=== PATIENT | female | born 1980 | race Caucasian/White ===

== ENCOUNTER 2020-10-25 05:42 | Inpatient (IN) | payer OTHER ==
[~2020-10-25] VITALS: Ht 157.5 cm; Wt 55.8 kg
[~2020-10-25 05:42] MED LIST: CEFUROXIME250 MG PO; CEFUROXIME500 MG PO; IBUPROFEN600 MG PO; PERCOCET 7.5-31 EACH PO
[2020-10-25 06:48] LABS: HEMOGLOBIN 10.7 gm/dl (12.3-15.3); RED BLOOD COUNT 4.94 M/UL (4.00-5.10); WHITE BLOOD COUNT 21.2 K/UL (4.5-11.0)
[2020-10-25 07:07] LABS: BUN/CREATININE RATIO 11 (0-10)
--- NOTE | 2020-10-25 23:12 | NUR ---
ASSUMED CARE OF PATIENT AT THIS TIME FROM [facility] [place] RN AT PATIENT REQUEST TO HAVE NEW NURSE CARE FOR HER. PATIENT LAYING IN BED, IV PATENT AND INTACT TO LEFT FOREARM. NO EDEMA NOTED TO IV SITE. INFUSING WELL WITH NO DIFFICULTY RIGHT HAND NOTED TO BE RED, WARM, AND EDEMATOUS. PATIENT SCHEDULUED FOR I AND D TOMORROW. PATIENT REMINDED THAT SHE IS NPO AFTER MIDNIGHT. PATIENT COMPLAINS OF SEVERE PAIN TO RIGHT HAND 10/10 , AND REQUESTS SOMETHING FOR PAIN AND TO DRINK. PATIENT REQUESTS PROVIDED. CALL LIGHT IN REACH, TABLE AT BEDSIDE, LOW LIGHTS PROVIDED. DENIES FURTHER NEEDS. REFUSES TO WEAR TELEMETRY MONIT ORING AT THIS TIME.
--- NOTE | 2020-10-26 01:25 | NUR ---
WHEN I RECEIVED REPORT ON THIS PT THE DAYSHIFT RN STATED THE PT AND HER SIGNIFICANT OTHER HAD WENT DOWN TO SMOKE AND CAME BACK AND THE PT WAS VERY LETHARGIC. I WENT INTO HER ROOM TO CHECK ON HER AFTER I RECEIVED REPORT AND THE PT WAS ASLEEP. THE PT WAS VERY HARD TO AROUSE AND SHE JUST REMAINED SLEEPING. THE SHIFT PROGESSED I CHECKED ON THE PT ONE MORE TIME AND SHE WAS STILL SLEEPING. THE TECH WENT DOWNSTAIRS TO GET THE PT'S FOOD HER FAMILY HAD BROUGHT HER. BUT THE TECH COULDN'T FIND THE FAMILY OR THEIR VEHICLE. SO THE TECH CALLED ME TO ASK THE PT WHAT TYPE AND COLOR OF VEHICLE HER FAMILY DROVE. I WENT BACK INTO THE PTS ROOM AND TRIED TO WAKE HER UP TO ASK HER, IT TOOK A LONG TIME FOR HER TO BE WOKEN UP. WHEN I FINALLY GOT HER WOKE UP SHE COULDN'T TELL ME THE TYPE OR COLOR OF VEHICLE THEY DROVE. SHE JUST STATED "I DON'T KNOW". I THEN WENT INTO A COVID PTS ROOM TO GIVE THEM THEIR MEDICATIONS AND AFTER I LEFT HER ROOM I HEARD A LOUD COMMOTION, I HEARD SOMEONE SCREAMING AND RANTING. I HEARD BANGING AND THE SOUND OF THINGS BEING THROWN. I JUST STARTED WALKING AROUND THE HALLWAY TO EACH PTS ROOM TRYING TO FIGURE OUT WHERE IT WAS COMING FROM. I WALKED AROUND THE CORNER AND SEEN THE PT SITTING IN THE MIDDLE OF HER BED SCREAMING AND GOING ON. I ENTERED THE ROOM AND SAID "MA'AM WHAT IS WRONG? IS THERE SOMETHING I CAN HELP YOU WITH?" SHE STARTED CUSSING ME, SAYING MULTIPLE CUSS WORDS. THE PT STATED I HAD LET HER SIT THERE FOR HOURS AND HER ASKING ME FOR PAIN MEDICATION. I TOLD HER SHE HADN'T ASKED ME FOR PAIN MEDICATION ONE TIME, THAT I HAD BEEN IN HER ROOM ON 3 DIFFERENT OCCASIONS AND SHE HAD BEEN SLEEPING EACH TIME. I ALSO INFORMED HER I WAS IN HER ROOM AND ASKED HER A QUESTION ABOUT HER FAMILYS VEHICLE FOR THE FOOD AND SHE HAD NO RECOLLECTION OF SUCH AN EVENT. SHE SCREAMED AT ME AND CUSSED ME AND TOLD ME TO GET OUT OF HER ROOM THAT I CAME BACK INTO HER WOULD SHE WOULD HIT ME. I LEFT THE ROOM AND TOLD THE TECH TO BEWARE OF THE SITUATION. THE TECH WENT INTO THE ROOM TO TRY TO TALK TO THE PT AND GET TO THE BOTTOM OF THE SITUATION. BUT SHE DID THE SAME THING TO HIM. BEFORE HE COULD EVEN SAY ANYTHING SHE LET INTO HIM AND STARTED CUSSING HIM ALSO. SHE APPARENTLY FIRED BOTH OF US AND SAID SHE WANTED ANOTHER NURSE AND TECH. I HAD A CRITCALLY HIGH BLOOD GLUCOSE SO I WAS TRYING TO GET AHOLD OF THE DR TO GET THAT UNDER CONTROL AND I SEE THE PT LEAVING HER ROOM WITH HER IV POLE AND BLANKET AROUND HER. I WENT TO THE PTS ROOM TO CHECK AND SHE HAD PULLED HER TELE BOX OFF AND IT WAS LAYING IN THE BED. I THOUGHT SHE WAS TRYING TO LEAVE AND HER WITH THE IV IN. SO I CALLED SECURITY AND HAD THEM TRACK HER DOWN. WHEN SHE CAME BACK UP, SECURITY WAS IN THE ROOM I TOLD HER I HAD HER AMA PAPERS AND IF SHE WOULD JUST LET ME TAKE THE IV OUT SHE COULD LEAVE. SHE STATED SHE DIDN'T WANT TO LEAVE SHE DIDN'T HAVE ANYWHERE TO GO, THAT SHE JUST WANTED ANOTHER NURSE. I THEN WENT AND TALKED TO THE TRACTOR OPERATOR AND INFORMED HER OF THE SITUATION AND ASKED HER WHAT I NEEDED TO DO. SHE STATED I HAD TO GIVE THE PT TO ANOTHER NURSE AND TRANSFER HER CARE TO THEM. I GAVE ALTA REPORT ON THE PT AND SHE TOOK OVER HER CARE.
[2020-10-26 08:24] LABS: HEMOGLOBIN 10.4 gm/dl (12.3-15.3); RED BLOOD COUNT 4.68 M/UL (4.00-5.10); WHITE BLOOD COUNT 19.3 K/UL (4.5-11.0)
[2020-10-26 08:42] LABS: BUN/CREATININE RATIO 7 (0-10)
== END 2020-10-27 08:01 | disposition left against medical advice (07) | DRG 603 ==
LOC: ER1 05:42 → CDU 08:48 → M/S 14:27
PROVIDERS: Emergency Medicine; Orthopaedic Surgery; Physician Assistant Medical; ADMIT Internal Medicine Infectious Disease
PROC: 3E10X8Z Irrigation of Skin and Mucous Membranes using Irrigating Substance (ICD-10-PCS; 2020-10-26)
PROC: 0JCJ0ZZ Extirpation of Matter from Right Hand Subcutaneous Tissue and Fascia, Open Approach (ICD-10-PCS; principal; 2020-10-26 08:30)
DX: L03.113 Cellulitis of right upper limb (principal); L02.511 Cutaneous abscess of right hand; S61.220A Laceration with foreign body of right index finger without damage to nail, initial encounter; Z20.828 Contact with and (suspected) exposure to other viral communicable diseases; M65.841 Other synovitis and tenosynovitis, right hand; S66.110A Strain of flexor muscle, fascia and tendon of right index finger at wrist and hand level, initial encounter; D72.829 Elevated white blood cell count, unspecified; Z87.891 Personal history of nicotine dependence; Z80.9 Family history of malignant neoplasm, unspecified; W25.XXXA Contact with sharp glass, initial encounter
CPT/HCPCS: 36415; 73130; 80048; 80053; 83605; 83735; 84703; 85025; 85027; 85652; 86140; 87040; 87070; 87077; 87186; 87205; 87635; 90471; 96365; 96366; 96367; 96368; 96376; 99284; J1170; J1885; J2001; J2250; J2270; J2405; J2543; J2704; J3010; J3370; J7030; J7070; J7120

== ENCOUNTER 2022-02-10 20:52 | Emergency (ER) | payer OTHER ==
[2022-02-10] MEDS ORDERED: CEPHALEXIN500 MG PO (22:54)
[2022-02-12 23:07] LABS: CHLAMYDIA TRACHOMATIS, NAA Negative (Negative); NEISSERIA GONORRHOEAE, NAA Negative (Negative)
== END 2022-02-10 23:05 | disposition home or self-care (01) ==
LOC: ER1 20:52
PROVIDERS: Physician Assistant
DX: N76.0 Acute vaginitis (principal); N39.0 Urinary tract infection, site not specified
CPT/HCPCS: 81001; 84703; 87077; 87086; 87186; 87210; 96372; 99283; J0696